=== PATIENT | male | born 1955 ===

== ENCOUNTER 2020-08-29 13:48 | Outpatient (CLI) | payer BC, SELFPAY ==
--- NOTE | 2020-08-29 13:52 | USCV_ITS ---
John Mathur Age: 65 Gender: M : 1955 Exam Date: 08/29/2020 14:02 Ordering Phys: Trish Meier Technologist: Yanni Clifford Exam Location: [facility] [place] Indication: av reg BP: 134 / 67 HR: 75 Rhythm: Sinus Technical Quality: Very technically difficult study MEASUREMENTS (Male / Female) Normal Values 2D ECHO LV Chamber Size 3.6 cm RV Chamber Size 2.5 cm LVOT Diameter 2.0 cm LV Ejection Fraction MOD 2C 57.0 % LV Ejection Fraction 2C AL 57.1 % LA Diameter 3.3 cm LA Width 2.9 cm LA Height 3.2 cm RA Width 2.6 cm RA Height 2.9 cm Aorta at Sinotubular Diameter 3.1 cm DOPPLER AV Peak Velocity 142.0 cm/s LVOT Peak Velocity 110.0 cm/s AV Area Cont Eq vti 3.0 cm squared AV Area Cont Eq pk 2.5 cm squared MV Area PHT 4.9 cm squared Mitral E to A Ratio 0.7 MV E' Velocity 37.5 cm/s Mitral E to MV E' Ratio 6.3 Mitral E to LV E' Lateral Ratio 5.2 Mitral E to LV E' Septal Ratio 8.1 TR Peak Velocity 161.0 cm/s TR Peak Gradient 10.4 mmHg TV Peak E Velocity 75.0 cm/s Right Atrial Pressure 3.0 mmHg Pulmonary Artery Systolic Pressu 13.4 mmHg PV Peak Velocity 66.0 cm/s RV Acceleration Time 0.2 s RV Ejection Time 0.4 s RV AcT/ET 0.4 FINDINGS Left Ventricle Normal left ventricular cavity size. Increased left ventricular wall thickness. Normal left ventricular systolic function. Left ventricular ejection fraction is estimated at 55%. There is mild to moderate hypokinesis of apical septal, apical lateral and apical inferior perez grade I diastolic dysfunction (abnormal relaxation filling pattern), normal to mildly elevated filling pressures. Right Ventricle Normal right ventricular size and systolic function. Right ventricular systolic pressure 16 mmHg. Right Atrium Normal right atrial size. Left Atrium Normal left atrial size. Mitral Valve Moderate mitral annular calcification. Thickened mitral valve. No mitral valve stenosis. Mild mitral valve regurgitation. Aortic Valve Aortic valve not well visualized. Probably tricuspid aortic valve. no aortic valve stenosis. Trace to mild aortic valve regurgitation. Tricuspid Valve Structurally normal tricuspid valve. Trace tricuspid valve regurgitation. Pulmonic Valve Pulmonic valve not well visualized. Trace pulmonary valve regurgitation. Pericardium No pericardial effusion. Aorta Aorta not well visualized. Possibly normal size aortic root and ascending aorta. CONCLUSIONS 1. This is a technically difficult study. 2. Normal left ventricular cavity size and systolic function. Increased left ventricular wall thickness. Left ventricular ejection fraction is estimated at 55%. There is mild to moderate hypokinesis of apical septal, apical lateral and apical inferior perez grade I diastolic dysfunction (abnormal relaxation filling pattern), normal to mildly elevated filling pressures. 3. Normal right ventricular size and systolic function. 4. Normal pulmonary artery pressure. 5. Mild mitral valve regurgitation. 6. Direct comparison to previous study dated 05/18/2019 is not possible given technical differences in study. Sabina Marshall MD (Electronically Signed) Final Date: 30 August 2020 17:22 S
== END 2020-08-29 13:49 | disposition home or self-care (01) ==
PROVIDERS: PCP Nurse Practitioner Family; Visit Provider Nurse Practitioner Family
DX: I35.1 Nonrheumatic aortic (valve) insufficiency (principal); I34.1 Nonrheumatic mitral (valve) prolapse
CPT/HCPCS: 93306

== ENCOUNTER → 2020-09-27 15:21 | Outpatient (BNVA) | payer BC, SELFPAY | PROVIDERS: PCP Nurse Practitioner Family; Referring Provider Nurse Practitioner Family; Visit Provider Urology | DX: N50.9 Disorder of male genital organs, unspecified (principal); R10.2 Pelvic and perineal pain | CPT/HCPCS: 81003 ==

== ENCOUNTER 2020-10-06 08:34 | Outpatient (CLI) | payer BC, SELFPAY ==
[2020-10-06 08:56] VITALS: BMI 32.3
--- NOTE | 2020-10-06 08:56 | ECG_ITS ---
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 Interpretive Statements NAME OF STUDY: LEXISCAN SESTAMIBI STRESS TEST INDICATION: Chest Pain PROCEDURE: At the baseline, the blood pressure was 140/86 mm Hg with a heart rate of 81 bpm and oxygen saturation of 95%. The electrocardiogram showed normal sinus rhythm, normal axis and non specific ST-T wave changes. ??? The Lexiscan was infused over a period of 20 seconds. A total of 0.4 milligrams of Lexiscan was infused. The stress phase was continued for a total of 5 minutes. Heart rate at the end of the stress phase was 93 bpm, oxygen saturation of 93% with a blood pressure 180/101 mm Hg. The EKG at the peak infusion revealed 2 mm horizontal to downsloping ST depression in II, III, aVF, V4-V6 and T wave inversion in III and aVF. The study was terminated due to protocol completion. ??? Sestamibi was injected 20 seconds after the Lexiscan infusion. ??? Blood pressure at the end of the recovery phase was 163/99 mm Hg, oxygen saturation of 94% with a heart rate of 90 beats per minute. ??? CONCLUSION: 1. Positive EKG changes with the LexiScan infusion. 2. No LexiScan induced chest pain or cardiac arrhythmia. 3. Normal blood pressure and heart rate response. 4. Sestamibi/sestamibi perfusion scan pending; see separate report. Electronically Signed On 10-07-2020 8:52:31 VENEER LAYER by Sabina Marshall M.D. [id number]
--- NOTE | 2020-10-06 08:57 | NMCV_ITS ---
NM rebeca perf SPECT r/s* [id number] John Mathur Age: 65 Gender: M : 1955 Exam Date: 10/06/2020 09:59 Ordering Phys: Sabina Marshall MD ([email or web address]) Technologist: EDIE Chavez Exam Location: [facility] Indications: CHEST PAIN STRESS TEST Please see separate stress test report in [facility] for full findings IMAGE PROTOCOL Rest/Stress 1 Lexiscan Day Radiopharmaceutical Dose (mCi) Administration Site Administered by Rest: Tc-99m 10.7 IV EDIE Bryant Sestamibi Stress:Tc-99m 32.6 IV EDIE Bryant Sestamibi Rest: 06-Oct-2020 60 Discovery 630 Stress: 06-Oct-2020 30 Discovery 630 0.4mg Lexiscan. Images obtained in supine and prone position. SPECT RESULTS Technical Quality: Excellent Raw Data Analysis: Normal Image Corrections: No attenuation or motion correction applied Summed Stress Score: 13 Summed Rest Score: 2 Summed Difference Score: 11 PERFUSION FINDINGS Medium size perfusion abnormality of mild severity of mid anteroseptal wall on rest images with decreased tracer uptake in basal to apical inferior, mid septal, apical septal and apical lateral perez on stress images. FUNCTIONAL RESULTS (calculated via Gated SPECT) Stress Image LV EF (%): 71 Stress EDV (mL):102 TID: 0.97 Stress ESV (mL):30 FUNCTIONAL FINDINGS: The left ventricle is normal in size. Transient Ischemia Dilatation of 0.97. The left ventricular ejection fraction is normal with a value of 71%. There is normal left ventricular wall thickening. Normal end-diastolic and end-systolic volumes. IMPRESSIONS 1. Medium size reversible perfusion abnormality of moderate severity of basal to apical inferior, mid septal, apical septal and apical lateral perez. 2. This may be suggestive of ischemia in right coronary artery and left anterior descending artery territory. 3. Overall left ventricular systolic function is abnormal with regional wall motion abnormalities. 4. The left ventricular ejection fraction is normal with a value of 71%. 5. No prior similar studies to compare. Sabina Marshall MD (Electronically Signed) Final Date: 09 October 2020 13:23 S
[2020-10-06] MEDS: hyDRALAzine 20 mg/mL INJ 1 mL 10 MG IVP (10:53)
[2020-10-06] MEDS: regadenoson 0.4 Mg/5 ml Syringe IVP (11:14)
[2020-10-06 11:31] VITALS: BP 163/99; PULSE 87
== END 2020-10-06 08:35 | disposition home or self-care (01) ==
PROVIDERS: PCP Nurse Practitioner Family; Visit Provider Internal Medicine Cardiovascular Disease
DX: I51.9 Heart disease, unspecified (principal); R07.9 Chest pain, unspecified
CPT/HCPCS: 78452; 93017; A9500; J0360; J2785

== ENCOUNTER → 2020-10-26 11:05 | Outpatient (BNVA) | payer BC, SELFPAY | PROVIDERS: PCP Nurse Practitioner Family; Visit Provider Internal Medicine Cardiovascular Disease | DX: R94.39 Abnormal result of other cardiovascular function study (principal); Z01.818 Encounter for other preprocedural examination; E78.5 Hyperlipidemia, unspecified; Z20.822 Contact with and (suspected) exposure to COVID-19 | CPT/HCPCS: 80048; 80061; 85025; 85610; 87635 ==

== ENCOUNTER 2020-10-31 08:59 | Day surgery (SDC) | payer BC, MEDICARE, SELFPAY ==
[2020-10-31] VITALS (7 sets, daily range): BP systolic 130–144; BP diastolic 81–97; PULSE 56–67; RESP 17–18; TEMP 36.4; O2SAT 92–95; BMI 32.9
--- NOTE | 2020-10-31 09:03 | XACV_ITS ---
Ht: 178 cm Wt: 101 kg BSA: 2.27 m2 Gender: Male : 1955 Exam Priority: Routine Procedure(s): Procedure Description: Diagnostic procedure Procedure Description: PCI procedure Procedure Description: Left Heart Catheterization Procedure Description: Drug Eluting Coronary Stent Procedure Description: PTCA Diagnostic Cath Status: Elective Diagnostic Findings * CX has 0% stenosis. * LM: Mild 30% stenosis, NORIS: 3 flow. * Proximal Left Anterior Descending Coronary Artery: Severe 95% stenosis, NORIS: 3 flow. * dLAD: Moderate 50% stenosis, NORIS: 3 flow. * Mid Right Coronary Artery: Severe 99% stenosis, NORIS: 3 flow. * dRCA to RPAV: Mild 40% stenosis, NORIS: 3 flow. * Coronary angiography shows right dominance. PCI Status: Elective PCI Indication: New Onset Angina <= 2 months Interventional Findings * Proximal Left Anterior Descending Coronary Artery: 95% stenosis treated with AB TREK 2.50X8 RX BALLOON, MDT R CATA 3.0X12 KENDRICK, and two MDT NC EUPHORA RX 3.19M80SI BALLOON. 0% residual stenosis, NORIS: 3 flow. * Mid Right Coronary Artery: 99% stenosis treated with two AB TREK 2.75X15 RX BALLOON, MDT R CATA 3.5X22 KENDRICK, and MDT NC EUPHORA RX 4.93P45JG BALLOON. 0% residual stenosis, NORIS: 3 flow. Conclusions 1. There is severe coronary artery disease with three vessel disease. 2. Proximal Left Anterior Descending Coronary Artery was treated with three Balloon and Drug Eluting Stent. 3. Mid Right Coronary Artery was treated with three Balloon and Drug Eluting Stent. 4. Indication for coronary angiogram: 5. Angina/abnormal stress test. Recommendations * 1-Return to inpatient for close monitoring and routine cath care 2-Risk factor modification for secondary prevention 3-Statin and aspirin 81 mg life--long, if tolerated 4-Patient was pre-loaded with 300 mg of Plavix, continue Plavix 75mg p.o. daily for at least one year. We will assess at the end of one year again to continue if further or not 5-Continue optimal medical management 6-Follow up with Dr. Godfrey in four weeks and your primary care in 10 days. Interventional RX Recommendation: PCI w/o planned CABG Diagnostic RX Recommendation: PCI w/o planned CABG Clinical Evaluation EBL: 5mL-10mL Procedural Details Procedure Consent Obtained. Admit Source: Out Patient. Pre-Procedure Time Out. Identified patient by full name and date of as verbalized by the patient/guarantor. Does the consent match the physician's order: Yes. Accurate & Complete Informed Consent: Yes. Inpatient/Outpatient History & Physical on Chart: Yes. If H&P is completed, is and addenduem needed: N/A; If yes, is the addendum complete: N/A. Visualize and Verify Site with Patient/Guarantor: N/A. Relevant Radiology Images available: N/A. Pre-op teaching completed and patient verbalized understanding. The risks, benefits, and alternatives of sedation and/or procedure were discussed by physician. The patient agrees to continue. Procedure started. Correct patient, site and procedure confirmed by cath team. PERRLA. Strong, equal hand geodetic advisor bilaterally. Lungs clear x 5 lobes. IV Site on Arrival: 20 gauge in the right anticubital. Pre Procedural Pulses: bilateral dorsalis pedis was 3+. Pre Procedural Pulses: bilateral posterior tibial was 2+. Pre Procedural Pulses: bilateral radial was 2+. Oxygen started at 2liters/min via nasal canula. bilateral groins was prepped with chloroprep then draped in the usual sterile fashion. right radial was prepped with chloroprep then draped in the usual sterile fashion. Physician notified. Baseline sample Acquired. HR: 62 BPM. Physician arrived. Physician scrubbed in. Immediate Pre-Procedure Time Out. Correct Patient: Yes; Correct Procedure: Yes; Correct Site: Yes; Correct Patient Position: Yes; Correct Supplies: Yes; Dried Flammable Prep: Yes; Blood Products Available: N/A;. Lidocaine 1% infiltrated to the right radial. Arterial access obtained. glide wire inserted. glidewire out. Multiple views taken of left coronary artery. Catheter redirected to the RCA. Multiple views taken of right coronary artery. Catheter out. 6 yakut XB 3.5 guide catheter was inserted over the wire. Matheny guidewire was advanced through the guide catheter to lesion in the prox LAD. Inflation number : 1 A AB TREK 2.50X8 RX BALLOON was prepped and advanced across the Prox LAD , then inflated to 14 STEPHIE for 0:07 seconds. Inflation number: 2 The AB TREK 2.50X8 RX BALLOON was reinflated across the Prox LAD, to 14 STEPHIE for 0:09 seconds. Inflation number: 3 The AB TREK 2.50X8 RX BALLOON was reinflated across the Prox LAD, to 20 STEPHIE for 0:27 seconds. Balloon out. Inflation Number : 4 A MDT R CATA 3.0X12 KENDRICK -Lot Number# [id number] exp date: 06-15-2022 was prepped and advanced across the Prox LAD. The stent was deployed at 20 STEPHIE for 0:35 seconds. Stent balloon out over wire. Inflation number : 5 A MDT NC EUPHORA RX 3.43V48IG BALLOON was prepped and advanced across the Prox LAD , then inflated to 0 STEPHIE for 0:00 seconds. Balloon and wire out. repositioning catheter. Inflation number : 6 A MDT NC EUPHORA RX 3.29U30IN BALLOON was prepped and advanced across the Prox LAD , then inflated to 14 STEPHIE for 0:20 seconds. Results checked. Balloon and wire out. Guide catheter out. 6 yakut AL 0.75 guide catheter was inserted over the wire. ACT drawn. Results 352 seconds. Therapeutic limits - pre-heparin administration 90-150 seconds and monitoring heparin during a vascular procedure >250 seconds. Inflation number: 1 The AB TREK 2.75X15 RX BALLOON was reinflated across the Mid RCA, to 14 STEPHIE for 0:28 seconds. Inflation number : 2 A AB TREK 2.75X15 RX BALLOON was prepped and advanced across the Mid RCA , then inflated to 14 STEPHIE for 0:20 seconds. Inflation number: 3 The AB TREK 2.75X15 RX BALLOON was reinflated across the Mid RCA, to 14 STEPHIE for 0:12 seconds. Balloon out. Inflation Number : 4 A MDT R CATA 3.5X22 KENDRICK -Lot Number# [id number] exp date: 09-19-2021 was prepped and advanced across the Mid RCA. The stent was deployed at 18 STEPHIE for 0:35 seconds. Results checked. Stent balloon out over wire. Inflation number : 5 A MDT NC EUPHORA RX 4.75M89GW BALLOON was prepped and advanced across the Mid RCA , then inflated to 12 STEPHIE for 0:33 seconds. Inflation number: 6 The MDT NC EUPHORA RX 4.92U94AT BALLOON was reinflated across the Mid RCA, to 12 STEPHIE for 0:21 seconds. Balloon out. Results checked. Guide catheter out. Wire out. TR band placed. Hemostasis obtained. Post Procedure: Pulses reassessed and unchanged. PERRLA. Strong, equal hand geodetic advisor bilaterally. No VTE prophylaxis required. Medication's Wasted: Lidocaine 1% = 16 mL. Medication's Wasted: Heparin = 1000 units. Medication's Wasted: Nitro = 49 mg. Total IV fluids: 150 mL. Contrast type used: Omnipaque 300 mgI/mL, 500 mL bottle. Contrast Material : Omnipaque 252 ml. A TR Band was successful obtaining hemostatsis at the Right Radial artery insertion site. ACT drawn. Results 256 seconds. Therapeutic limits - pre-heparin administration 90-150 seconds and monitoring heparin during a vascular procedure >250 seconds. [facility] Clinical Fraility Score: 3: Managing Well. Office Services Assistant Indications: New Onset Angina/ abnormal stress test. Chest Pain Symptom Assessment: Typical Angina Symptoms. Cardiovascular Instability: No,. PCI Indication:post drug illuting stent to Prox LAD and Mid RCA. Post-op diagnosis: drug illuting stent to Prox LAD and Mid RCA. Complications: none. Estimated blood loss: 5mL-10mL. Procedure completed. Patient transferred by wheelchair to 1st floor. Access Site Site: Right Radial artery Sheath Size: 6 Fr Hemostasis Method: TR Band Hemostasis Success: Successful Procedure Medications Start: 10:28 AM Stop: 10:28 AM Medication: Versed Amount: 1 mg Route: I.V. Start: 10:37 AM Stop: 10:37 AM Medication: Versed Amount: 1 mg Route: I.V. Start: 10:47 AM Stop: 10:47 AM Medication: Heparin Amount: 5000 units Route: I.V. Start: 10:49 AM Stop: 10:49 AM Medication: Versed Amount: 1 mg Route: I.V. Start: 10:55 AM Stop: 10:55 AM Medication: Heparin Amount: 5000 units Route: I.V. Start: 11:00 AM Stop: 11:00 AM Medication: Versed Amount: 1 mg Route: I.V. Start: 11:12 AM Stop: 11:12 AM Medication: Versed Amount: 1 mg Route: I.V. Start: 11:24 AM Stop: 11:24 AM Medication: Versed Amount: 1 mg Route: I.V. Start: 11:41 AM Stop: 11:41 AM Medication: Versed Amount: 1 mg Route: I.V. Start: 11:53 AM Stop: 11:53 AM Medication: Plavix Amount: 300 mg Route: P.O. I, the attending physician, have reviewed and verified all procedure medications. Yes, all medications given per verbal order History/Risk Factors Dyslipidemia: Yes Tobacco Use: Never Report Signatures Finalized by Elizabeth Godfrey MD on 11/10/2020 08:52 PM
[2020-10-31] MEDS: diphenhydrAMINE 50 mg Capsule PO (09:40)
--- NOTE | 2020-10-31 12:15 | PC.NURSE ---
ARRIVAL PT ARRIVED FROM TNT POWDER WORKER AO X4. ORIENTATED TO ROOM, MEAL TRAY SET UP. TR BAND ON RIGHT WRIST NO HEMATOMA AT TIME OF ADMISSION. PATIENT HAS NO COMPLAINTS AT THIS TIME. FAMILY AT BEDSIDE. NURSE TO CONTINUE TO MONITOR.
--- NOTE | 2020-10-31 12:15 | P.HPUD_ITS ---
Surgery/Procedure H&P Update DATE OF PROCEDURE: October 31, 2020 DATE H&P PERFORMED: 10/23/20 H&P UPDATE INFORMATION: I have reviewed H&P completed within last 30 days, I have examined patient prior to procedure and No changes to prior documentation PREOP DIAGNOSIS: Abnormal stress test, coronary artery disease, angina. PLANNED PROCEDURE: Operation Date: 10/31/20 10:00 Proposed Procedures p left Cardiac Catheterization 95703 R94.39(Left) - Elizabeth Godfrey MD PHYSICAL EXAM: alert, oriented x 3, clear to auscultation bilaterally and regu lar rate & rhythm AIRWAY EVAL/ANESTHESIA PLAN: ASA II, Risks, benefits & alternatives of sedation and/or procedure discussed and Patient agrees to continue as planned
[2020-10-31] MEDS: aspirin 81 mg EC Tablet PO (13:11)
[2020-10-31] MEDS: atorvastatin 40 mg Tablet PO (13:11)
--- NOTE | 2020-10-31 18:24 | PC.NURSE ---
TR BAND TR BAND REMOVED PER PROTOCOL @ 1800. NO DRAINAGE OR HEMATOMA PRESENT. PT STATES NO COMPLAINTS AT THIS TIME. NURSE WILL CONTINUE TO MONITOR.
--- NOTE | 2020-11-01 04:58 | PC.NURSE ---
NURSE NOTE: SHIFT SUMMARY: PT ALERT AND ORIENTED X4, MOVES ALL EXTREMITIES AND FOLLOWS ALL COMMANDS. RESTED WITH EYES CLOSED MOST OF SHIFT. DENIES PAIN. CURRENTLY RESTING WITH EYES CLOSED, RESP EVEN AND NON LABORED, ALL VS AND ASSESSMENTS CHARTED. NO DISTRESS NOTED AT THIS TIME.
[2020-11-01 05:10] LABS: Basophils % 0.4 %; Eosinophils # 0.3 10^3/uL (0.0-0.8); Eosinophils % 3.2 %; Hematocrit 47.1 % (42.0-52.0); Hemoglobin 15.4 g/dL (11.7-16.6); Lymphocytes % 24.8 %; Mean Corpuscular HGB Conc 32.7 g/dL (30.0-36.0); Mean Corpuscular Hemoglobin 31.4 pg (28.0-34.0); Mean Corpuscular Volume 95.9 fL (80-94); Mean Platelet Volume 10.7 fL (7.4-10.4); Monocytes # 0.7 10^3/uL (0.2-0.9); Monocytes % 8.4 %; Neutrophils % 62.3 %; Nucleated Red Blood Cells % 0 %; Platelet Count 191 10^3/cmm (130-400); Red Blood Count 4.91 10^6/uL (4.1-5.3); Red Cell Distribution Width 12.6 % (12.1-15.1); White Blood Count 8.2 10^3/uL (4.0-10.0)
[2020-11-01 05:26] LABS: Blood Urea Nitrogen 13 mg/dL (8-23); Calcium 9.3 mg/dL (8.5-10.5); Carbon Dioxide 28 mmol/L (22-29); Chloride 102 mmol/L (98-107); Glomerular Filtration Rate 112.8 mL/min (90-130); Glucose 92 mg/dL (65-115); Osmolality Calculated 288 mOsm/kg (285-295); Sodium 139 mmol/L (136-145)
[2020-11-01 05:43] LABS: Anion Gap 13.4 (5-19); Potassium 4.4 mmol/L (3.5-5.1)
[2020-11-01 06:00] VITALS: PULSE 60
--- NOTE | 2020-11-01 07:17 | P.SS_ITS ---
Short Stay Summary Providers Date of Admit/Discharge: 11/01/20 Attending Provider: Elizabeth Godfrey MD Primary Care Provider: Trish Meier Chief Complaint: [facility] HPI History of Present Illness John Mathur is a 65 year old male past medical history significant for hypertension hyperlipidemia for worsening of chest pain or shortness of breath underwent stress test which turned out to be abnormal. It is the reason patient was brought in yesterday for left heart cath. She was noted to have highly calcified proximal LAD and mid RCA lesion both were treated with drug-eluting stents 1 in LAD 1 and RCA. Excellent angiographic result with NORIS-3 flow was noted. Procedure remained uncomplicated. Patient will continue dual antiplatelet therapy. No event overnight noted. He will be discharged today with advised to follow-up with cardiology in 7 days. Home Meds/Allergies Home Medications and Allergies Home Medications Medication Instructions Recorded Confirmed Type allopurinol 300 mg tablet 300 mg PO DAILY 09/27/20 10/31/20 History atorvastatin 40 mg tablet 40 mg PO DAILY 09/27/20 10/31/20 History cetirizine 10 mg tablet 5 mg PO DAILY PRN 09/27/20 10/31/20 History cholecalciferol (vitamin D3) 1,250 PO 09/27/20 09/27/20 History mcg (50,000 unit) capsule ergocalciferol (vitamin D2) 1,250 1,250 mcg PO DAILY 09/27/20 10/31/20 History mcg (50,000 unit) capsule meclizine 25 mg tablet 25 mg PO DAILY 09/27/20 10/31/20 History methocarbamol 750 mg tablet 750 mg PO Q8H 09/27/20 10/31/20 History omeprazole 20 mg capsule,delayed 20 mg PO DAILY 09/27/20 10/31/20 History release aspirin 81 mg tablet,delayed 81 mg PO DAILY 10/23/20 10/31/20 History release Allergies Allergy/AdvReac Type Severity Reaction Status Date / Time No Known Allergies Allergy Verified 10/23/20 13:27 PFSH Acute PFSH: Medical History Aortic valve regurgitation Benign paroxysmal positional vertigo Hyperlipidemia Pelvic pain in male Primary gout Vitamin D deficiency Surgical History History of hip surgery Hx of hernia repair Family History Mother Stroke Brother Diabetes Father CAD (coronary artery disease) Other Hyperlipidemia Hypertension Social History Smoking and tobacco status: never smoked Alcohol intake: current Alcohol intake frequency: holidays/special occasions only Marital status: Current occupational status: retired Vitals/I&O/Wt Last Vital Signs Temp 97.6 F 10/31/20 16:24 Pulse 60 11/01/20 06:00 Resp 17 10/31/20 16:24 BP 144/97 10/31/20 16:24 Pulse Ox 94 10/31/20 22:59 10/31/20 11/01/20 11/01/20 22:59 06:59 14:59 Intake Total 360 / 360 240 / 600 Output Total 300 / 300 400 / 700 Balance 60 / 60 -160 / -100 Weight last 48 hrs Weight 223 lb Physical Exam Narrative: EXAM NARRATIVE: GENERAL: Patient is alert, awake and oriented x3. NECK: No jugular vein distension. HEENT: No cyanosis. No icterus. No pallor. HEART: Regular S1 and S2. No murmur, rub or gallop. LUNGS: Clear to auscultate bilaterally. ABDOMEN: Soft, nontender and nondistended. Positive bowel sounds. No guarding, rebound or tenderness. CENTRAL NERVOUS SYSTEM: Grossly nonfocal. EXTREMITIES: Lower extremities without edema bilaterally. SSS Data Data Completed and Pending: Pending at discharge Category Date Time Status JUNIOR MARKETING ASSOCIATE request for service Routin e Exams 10/31/20 09:03 Taken Discharge Plan Discharge Patient Disposition: Home Condition: Stable Prescriptions: Continued aspirin [Adult Aspirin Regimen] 81 mg tablet,delayed release (DR/EC) 81 mg PO DAILY RF: 0 allopurinol 300 mg tablet 300 mg PO DAILY RF: 0 atorvastatin 40 mg tablet 40 mg PO DAILY RF: 0 cholecalciferol (vitamin D3) 1,250 mcg (50,000 unit) capsule PO RF: 0 ergocalciferol (vitamin D2) 1,250 mcg (50,000 unit) capsule 1,250 mcg PO DAILY RF: 0 meclizine 25 mg tablet 25 mg PO DAILY RF: 0 methocarbamol 750 mg tablet 750 mg PO Q8H RF: 0 omeprazole 20 mg capsule,delayed release(DR/EC) 20 mg PO DAILY RF: 0 cetirizine [Zyrtec] 10 mg tablet 5 mg PO DAILY PRN (Reason: Allergy Symptoms) RF: 0 nitroglycerin 0.4 mg tablet, sublingual 0.4 mg sublingual Q5M PRN (Reason: chest pain) Qty: 25 RF: 3 metoprolol tartrate 25 mg tablet 25 mg PO DAILY Qty: 60 RF: 5 isosorbide mononitrate 30 mg tablet extended release 24 hr 30 mg PO DAILY Qty: 30 RF: 5 clopidogrel 75 mg tablet 75 mg PO DAILY Qty: 7 RF: 0 Discharge Diet: Cardiac and Low Cholesterol Discharge Activity: Increase activity as tolerated Patient Instructions: Left Heart Catheterization (DC), Coronary Angioplasty (DC) Activity Restrictions/Additional Instructions: Follow-up with cardiology nurse practitioner Ms. Smith in 7 days, follow-up with Dr. Marshall in 6 to 8 weeks. Please continue clopidogrel and aspirin for at least 1 year after that we will decide whether to continue or not Attestations Medical Necessity Statement*: Post PCI patient was observed overnight. He will be discharged home today Time Spent in Patient Care*: less than 30 min Specific Discharge Activities: Specific discharge activities: educating patient Quality Metrics Clinical Quality Measures: During this hospital stay, did patient experience: None Coding Level of Care Code Acute Papier Mache' Molder for Kai Lyn
[2020-11-01 07:30] VITALS: BP 145/86; PULSE 67; RESP 20; TEMP 36.7; O2SAT 94
[2020-11-01] MEDS: aspirin 81 mg EC Tablet PO (09:17)
[2020-11-01] MEDS: clopidogrel 75 mg Tablet PO (09:18)
[2020-11-01] MEDS: metoprolol tartrate 25 mg Tablet PO (09:24)
--- NOTE | 2020-11-01 09:30 | PC.NURSE ---
pt refused allopurinol and atorvastatin.states taked those at night and will take tonight.refused protonix..states he will take omeprazole at noon at home.negar has been dc'd
[2020-11-01 09:35] VITALS: BP 145/86; PULSE 67; RESP 20; TEMP 36.7; O2SAT 94
--- NOTE | 2020-11-01 10:10 | PC.NURSE ---
discharge instructions given and explined.pt verb understanding of instructions.discharged at this time.pt amb to exit.spouse to drive pt home
== END 2020-11-01 10:12 | disposition home or self-care (01) ==
LOC: CCL 09:02 → CSU 11-01 07:16
PROVIDERS: PCP Nurse Practitioner Family; Visit Provider Internal Medicine Cardiovascular Disease
DX: I25.10 Atherosclerotic heart disease of native coronary artery without angina pectoris (principal); R94.39 Abnormal result of other cardiovascular function study; E78.5 Hyperlipidemia, unspecified; E55.9 Vitamin D deficiency, unspecified; N40.0 Benign prostatic hyperplasia without lower urinary tract symptoms; I35.1 Nonrheumatic aortic (valve) insufficiency
CPT/HCPCS: 36415; 80048; 85025; 85347; 93454; C1725; C1769; C1874; C1887; C1894; C9600; C9601; J1644; J2250; J3010; J3490; J7030; Q0163; Q9967

== ENCOUNTER 2020-11-04 19:16 | Inpatient (IN) | payer BC, MEDICARE, SELFPAY ==
[2020-11-04] VITALS (37 sets, daily range): BP systolic 99–162; BP diastolic 42–99; PULSE 72–108; RESP 14–33; TEMP 36.3–37.2; O2SAT 89–98; BMI 30.8
--- NOTE | 2020-11-04 19:54 | ECG_ITS ---
[facility] Test Date: 2020-11-04 Pat Name: John Mathur Department: Room: Gender: Male Roll Hand: : 1955 Requested By: Donnell Lagos Order Number: [id number] Reading MD: KATERIN WOODS Measurements Intervals [place] Rate: 99 P: -52 IA: 244 QRS: 52 QRSD: 134 T: 55 QT: 352 QTc: 453 Interpretive Statements SINUS RHYTHM WITH FIRST DEGREE AV BLOCK INTRAVENTRICULAR CONDUCTION DELAY [130+ ms QRS DURATION] No previous ECG available for comparison Electronically Signed On 11-05-2020 17:43:53 COMMODITY TRADER by KATERIN WOODS [id number]
--- NOTE | 2020-11-04 19:54 | XRR_ITS ---
PROCEDURE INFORMATION: Exam: XR Chest Exam date and time: 11/04/2020 8:30 PM Age: 65 years old Clinical indication: Other: Dizzy; Prior surgery; Surgery date: 3-7 days post-operative; Surgery type: Stents TECHNIQUE: Imaging protocol: XR of the chest Views: 1 view. COMPARISON: CR Chest 1 view [id number] 10/01/2020 10:26 PM FINDINGS: Lungs: Low lung volumes. No focal consolidation. Pleural spaces: Unremarkable. No pleural effusion. No pneumothorax. Heart/Mediastinum: Stable cardiomediastinal silhouette. Bones/joints: Degenerative changes of the spine seen. XR/XR chest 1V portable [id number] IMPRESSION: No evidence of active cardiopulmonary disease.
[2020-11-04] MEDS: sodium chloride 0.9% 500 ML 999 ML IV (20:10)
[2020-11-04 20:20] LABS: Basophils # 0.1 10^3/uL (0.0-0.1); Basophils % 0.6 %; Eosinophils # 0.3 10^3/uL (0.0-0.8); Eosinophils % 3.3 %; Hematocrit 45.8 % (42.0-52.0); Hemoglobin 15.7 g/dL (11.7-16.6); Lymphocytes # 2.4 10^3/uL (0.8-4.8); Lymphocytes % 26.3 %; Mean Corpuscular HGB Conc 34.3 g/dL (30.0-36.0); Mean Corpuscular Hemoglobin 32.5 pg (28.0-34.0); Mean Corpuscular Volume 94.8 fL (80-94); Monocytes # 0.8 10^3/uL (0.2-0.9); Monocytes % 8.6 %; Neutrophils # 5.49 10^3/uL (1.8-7.7); Neutrophils % 60.6 %; Nucleated Red Blood Cells % 0 %; Platelet Count 208 10^3/cmm (130-400); Red Blood Count 4.83 10^6/uL (4.1-5.3); Red Cell Distribution Width 12.5 % (12.1-15.1); White Blood Count 9.1 10^3/uL (4.0-10.0)
[2020-11-04 20:37] LABS: Troponin(5th) Baseline 22 ng/L (0-15)
[2020-11-04 20:40] LABS: INR 1.17 (0.8-1.2)
[2020-11-04] MEDS: DOPamine drip 400 MG/250 ML PREMIX 18.3 MG IV (20:40)
[2020-11-04 20:41] LABS: Alanine Aminotransferase 53 U/L (0-41); Albumin Level 4.4 g/dL (3.5-5.2); Alkaline Phosphatase 62 IU/L (40-130); Blood Urea Nitrogen 12 mg/dL (8-23); Calcium 9.3 mg/dL (8.5-10.5); Carbon Dioxide 24 mmol/L (22-29); Chloride 104 mmol/L (98-107); Creatine Phosphokinase 127 U/L (39-308); Globulin 2.7 g/dL (1.3-4.6); Glomerular Filtration Rate 74.8 mL/min (90-130); Glucose 123 mg/dL (65-115); NT Pro B Type Natriuretic Pept 148 pg/mL (0-125); Osmolality Calculated 289 mOsm/kg (285-295); Sodium 139 mmol/L (136-145); Total Bilirubin 0.4 mg/dL (0.15-1.2); Total Protein 7.1 g/dL (6.6-8.7)
[2020-11-04 20:44] LABS: Anion Gap 15.1 (5-19); Aspartate Amino Transferase 39 U/L (0-40); Potassium 4.1 mmol/L (3.5-5.1)
--- NOTE | 2020-11-04 21:43 | ED_ITS ---
HPI - Arrhythmia/Palpitations General: Chief Complaint: Arrhythmia/Palpitations Stated Complaint: DIZZY Time Seen by Provider: 11/04/20 19:48 History of Present Illness: HPI narrative: 65-year-old gentleman who had stents placed in his RCA and LAD on Friday he notes a couple of days ago he is started having dizzy spells. He has a feeling of impending doom, and dizziness, such that he might pass out no chest discomfort associated with these. No real shortness of breath. He does note that they make him tired. He has been on metoprolol, and did not take his metoprolol this morning, and did not have any episodes until tonight, about 45 minutes after taking his metoprolol dose Associated symptoms: Deny anxiety, nausea or vomiting Review of Systems Const: Denies: fever(s) Eyes: Denies: change in vision ENMT: Denies: odynophagia, swelling of lips/tongue or sinus pain Card: Reports: irregular heart rhythm; Denies: chest pain, palpitations or edema Resp: Denies: dyspnea, productive cough, non-productive cough or wheezing GI: Denies: abdominal pain, nausea or vomiting : Denies: difficulty urinating or hematuria Musc: Denies: neck pain or back pain Skin/Breast: Denies: rash or erythema Neuro: Reports: dizziness; Denies: headache(s) or vertigo Psych: Denies: anxiety PFSH ED PFSH: Medical History Aortic valve regurgitation Benign paroxysmal positional vertigo Hyperlipidemia Pelvic pain in male Primary gout Vitamin D deficiency Surgical History History of hip surgery Hx of hernia repair Family History Mother Stroke Brother Diabetes Father CAD (coronary artery disease) Other Hyperlipidemia Hypertension Social History Smoking and tobacco status: never smoked Alcohol intake: current Alcohol intake frequency: holidays/special occasions only Marital status: Current occupational status: retired Physical Exam Const: GENERAL APPEARANCE: well developed ORIENTATION/CONSCIOUSNESS: Yes oriented to person, Yes oriented to place and Yes oriented to time HENMT: COMMON NORMALS: normocephalic, external ears normal and Normal external nose present HEAD & SCALP: normocephalic FACE & SINUS: normal facial exam NOSE: Normal external nose present and No nasal discharge present EXTERNAL EAR: Yes external ears normal TEETH & GINGIVA: no abnormal tooth and associated gingiva THROAT: posterior oropharynx normal; no peritonsillar mass Eye: COMMON NORMALS: Equal, round and reactive pupils present, EOMs intact bilaterally and conjunctivae normal EYELID: eyelids normal CONJUNCTIVA: Yes conjunctivae normal PUPIL: Yes Equal, round and reactive pupils present Neck/C-Spine: GENERAL: No tracheal deviation Chest: COMMONS NORMALS: normal inspection of the chest CHEST: No tenderness Resp: COMMON NORMALS: clear to auscultation bilaterally EFFORT & INSPECTION: No tachypneic, No respiratory distress, No retractions, No uses accessory muscles and No tracheal deviation AUSCULTATION: clear to auscultation bilaterally, no rhonchi, no wheezes and lung sounds not diminished Cardio: COMMON NORMALS: regular rate RATE: regular rate RHYTHM: abnormal rhythm irregularly irregular HEART SOUNDS: no murmurs PERIPHERAL PULSES: radial pulses present GI: INSPECTION: No abdominal distension AUSCULTATION: No Hyperactive bowel sounds present and No Hypoactive bowel sounds present PALPATION: No Guarding due to palpation present (GI) and No Rigid due to palpation PERCUSSION: no dullness to percussion and no tympanic to percussion Neuro: SENSORIUM/ORIENTATION: Yes oriented to person, Yes oriented to place and Yes oriented to time Psych: COMMON NORMALS: mental status grossly normal Skin: COMMON NORMALS: no rashes or lesions noted GENERAL SKIN EXAM: no rashes or lesions noted Course Consultations: Consultation #1: Epifanio cardiology Consultation #2: Oscar hospitalist Vital Signs: Vital signs: Vital Signs Temperature 97.3 F L 11/04/20 19:57 Pulse Rate 93 11/04/20 22:54 Respiratory Rate 16 11/04/20 22:54 Blood Pressure 99/42 11/04/20 22:54 Pulse Oximetry 94 11/04/20 22:54 MDM - Arrhythmia/Palpitations MDM Narrative: Medical decision making narrative: 65-year-old male with an irregular bradycardia. His pauses are significantly prolonged. They are symptomatic. EKG shows atrial fibrillation without acute ST changes. On 1 EKG, a long pause is captured. The patient was symptomatic with this. Atropine was brought to the bedside. Pacemaker pads were placed. These did not have to be used. I consulted cardiology, who recommended a dopamine drip at 10. This seemed to work. There have not been any long pauses since this was started. This may also correspond to the peak of the metoprolol being past. He will be admitted to the ICU for continued monitoring and treatment. Hospitalist has seen the patient in the ER. Cardiology has been formally consulted and most likely see in the morning unless there are problems that arise overnight. Lab Data: Labs: Lab Results 11/04/20 11/04/20 11/04/20 Range/Units 20:02 20:02 20:02 WBC 9.1 (4.0-10.0) 10^3/ uL RBC 4.83 (4.1-5.3) 10^6/u L Hgb 15.7 (11.7-16.6) g/dL Hct 45.8 (42.0-52.0) % MCV 94.8 H (80-94) fL MCH 32.5 (28.0-34.0) pg MCHC 34.3 (30.0-36.0) g/dL RDW 12.5 (12.1-15.1) % Plt Count 208 (130-400) 10^3/c mm MPV 11.0 H (7.4-10.4) fL Neut % (Auto) 60.6 % Lymph % (Auto) 26.3 % [place] % (Auto) 8.6 % Eos % (Auto) 3.3 % Baso % (Auto) 0.6 % Neut # (Auto) 5.49 (1.8-7.7) 10^3/u L Lymph # (Auto) 2.4 (0.8-4.8) 10^3/u L [place] # (Auto) 0.8 (0.2-0.9) 10^3/u L Eos # (Auto) 0.3 (0.0-0.8) 10^3/u L Baso # (Auto) 0.1 (0.0-0.1) 10^3/u L Nucleated RBC % (a uto) 0 % Nucleated RBCs # 0.0 /100WBC PT 15.20 H (12.1-14.9) SECO NDS INR 1.17 (0.8-1.2) APTT 35.0 (23.9-36.7) SECO NDS Sodium 139 (136-145) mmol/L Potassium 4.1 (3.5-5.1) mmol/L Chloride 104 (98-107) mmol/L Carbon Dioxide 24 (22-29) mmol/L Anion Gap 15.1 (5-19) BUN 12 (8-23) mg/dL Creatinine 1.0 (0.7-1.2) mg/dL GFR Calculation 74.8 L (90-130) mL/min Glucose 123 H (65-115) mg/dL Calculated Osmolal ity 289 (285-295) mOsm/k g Calcium 9.3 (8.5-10.5) mg/dL Total Bilirubin 0.4 (0.15-1.2) mg/dL AST 39 (0-40) U/L ALT 53 H (0-41) U/L Alkaline Phosphata se 62 (40-130) IU/L Creatine Kinase 127 (39-308) U/L Troponin T Baselin e (0-15) ng/L NT-Pro-B Natriuret Pep 148 H (0-125) pg/mL Total Protein 7.1 (6.6-8.7) g/dL Albumin 4.4 (3.5-5.2) g/dL Globulin 2.7 (1.3-4.6) g/dL /02/19 Range/Units 20:02 WBC (4.0-10.0) 10^3/ uL RBC (4.1-5.3) 10^6/u L Hgb (11.7-16.6) g/dL Hct (42.0-52.0) % MCV (80-94) fL MCH (28.0-34.0) pg MCHC (30.0-36.0) g/dL RDW (12.1-15.1) % Plt Count (130-400) 10^3/c mm MPV (7.4-10.4) fL Neut % (Auto) % Lymph % (Auto) % [place] % (Auto) % Eos % (Auto) % Baso % (Auto) % Neut # (Auto) (1.8-7.7) 10^3/u L Lymph # (Auto) (0.8-4.8) 10^3/u L [place] # (Auto) (0.2-0.9) 10^3/u L Eos # (Auto) (0.0-0.8) 10^3/u L Baso # (Auto) (0.0-0.1) 10^3/u L Nucleated RBC % (a uto) % Nucleated RBCs # /100WBC PT (12.1-14.9) SECO NDS INR (0.8-1.2) APTT (23.9-36.7) SECO NDS Sodium (136-145) mmol/L Potassium (3.5-5.1) mmol/L Chloride (98-107) mmol/L Carbon Dioxide (22-29) mmol/L Anion Gap (5-19) BUN (8-23) mg/dL Creatinine (0.7-1.2) mg/dL GFR Calculation (90-130) mL/min Glucose (65-115) mg/dL Calculated Osmolal ity (285-295) mOsm/k g Calcium (8.5-10.5) mg/dL Total Bilirubin (0.15-1.2) mg/dL AST (0-40) U/L ALT (0-41) U/L Alkaline Phosphata se (40-130) IU/L Creatine Kinase (39-308) U/L Troponin T Baselin e 22 H (0-15) ng/L NT-Pro-B Natriuret Pep (0-125) pg/mL Total Protein (6.6-8.7) g/dL Albumin (3.5-5.2) g/dL Globulin (1.3-4.6) g/dL Critical Care Time Critical Care Time: Critical Care Time: Yes Total Critical Care Time: 35 Attestation: This case had a high probability of a clinically significant, sudden, or life threatening deterioration of this patient's condition which required my full and direct attention, intervention and personal management. Discharge Plan Discharge Patient Disposition: Admitted As Inpatient Admit Provider: Cade Moore Clinical Impression: Bradycardia Atrial fibrillation Qualifiers: Atrial fibrillation type: paroxysmal Qualified Code(s): I48.0 - Paroxysmal atrial fibrillation Condition: Stable Coding Level of Care Code ED Publications Manager for g Fwd Exam Comprehensive
--- NOTE | 2020-11-04 21:54 | ECG_ITS ---
[facility] Test Date: 2020-11-04 Pat Name: John Mathur Department: Room: ICU10 Gender: Male Spiritual Minister: : 1955 Requested By: Donnell Lagos Order Number: [id number] Reading MD: KATERIN WOODS Measurements Intervals [place] Rate: 51 P: DC: QRS: 23 QRSD: 99 T: 51 QT: 384 QTc: 355 Interpretive Statements SINUS RYTHM FOLLOWED BY SINUS PAUSE NONSPECIFIC ST & T-WAVE ABNORMALITY ABNORMAL RHYTHM ECG No previous ECG available for comparison Electronically Signed On 11-05-2020 17:46:28 AUTOMATION QTP TESTER by KATERIN WOODS [id number] f
[2020-11-04 22:05] LABS: Troponin 5 2HR 21.89 ng/L (0-15)
[2020-11-04 22:09] LABS: Troponin 5 2HR Delta -0.11 ABS# (0-10)
--- NOTE | 2020-11-04 22:18 | P.HP_ITS ---
Providers/Chief Complaint Admitting Physician: Cade Moore Primary Care Provider: Trish Meier-Candido Chief Complaint: DIZZY History of Present Illness John Mathur is a 65 year old male with a diagnosis of coronary artery disease, status post cardiac catheterization 4 days ago presented to the emergency department with a complaint of dizziness. groundwater monitoring technician in the ED demonst rated significant pauses in his heart rhythm and atrial fibrillation. His heart rate was down to the 40s in the ED. Patient correlated his symptoms to metoprolol administration. Patient states he has been experiencing slow heartbeat over the last couple of weeks and his physicians had been titrating his metoprolol dose down even before he underwent the cardiac catheterization. Cast Associate Dr. Godfrey was informed who recommended dopamine drip. His heart rate improved to the low 80s and 90s on the dopamine drip and this was associated with improvement in the dizziness. Check x-ray is unremarkable. Troponin unremarkable. Patient denies any chest pain or palpitation. He is admitted for further management. Review of Systems Narrative: Except as documented, all other systems reviewed and negative. Medications/Allergies Home Medications Medication Instructions Recorded Confirmed Last Taken Type allopurinol 300 mg tablet 300 mg PO DAILY 09/27/20 10/31/20 10/30/20 22:30 History cetirizine 10 mg tablet 5 mg PO DAILY PRN 09/27/20 10/31/20 10/30/20 22:30 History cholecalciferol (vitamin D3) 1,250 PO 09/27/20 09/27/20 10/30/20 22:30 History mcg (50,000 unit) capsule ergocalciferol (vitamin D2) 1,250 1,250 mcg PO DAILY 09/27/20 10/31/20 10/30/20 22:30 History mcg (50,000 unit) capsule omeprazole 20 mg capsule,delayed 20 mg PO DAILY 09/27/20 10/31/20 10/30/20 22:30 History release nitroglycerin 0.4 mg sublingual 0.4 mg SUBLINGUAL Q5M PRN #25 tab 09/29/20 10/31/20 Unknown Rx tablet metoprolol tartrate 25 mg tablet 25 mg PO DAILY #60 tab 10/18/20 10/31/20 10/30/20 22:30 Rx Adult Aspirin Regimen 81 mg PO DAILY #90 tab 11/01/20 10/31/20 10/31/20 07:15 Rx atorvastatin 40 mg PO DAILY #90 tab 11/01/20 10/31/20 10/30/20 22:30 Rx clopidogrel 75 mg PO DAILY #90 tab 11/01/20 10/31/20 10/31/20 07:15 Rx Allergies Allergy/AdvReac Type Severity Reaction Status Date / Time No Known Allergies Allergy Verified 10/23/20 13:27 PFSH Acute PFSH: Medical History Aortic valve regurgitation Benign paroxysmal positional vertigo Hyperlipidemia Pelvic pain in male Primary gout Vitamin D deficiency Surgical History History of hip surgery Hx of hernia repair Family History Mother Stroke Brother Diabetes Father CAD (coronary artery disease) Other Hyperlipidemia Hypertension Social History Smoking and tobacco status: never smoked Alcohol intake: current Alcohol intake frequency: holidays/special occasions only Marital status: Current occupational status: retired Vitals/I&O/Wt Last Vital Signs Temp 97.3 F L 11/04/20 19:57 Pulse 85 11/04/20 22:10 Resp 23 H 11/04/20 22:10 BP 104/67 11/04/20 22:10 Pulse Ox 94 11/04/20 22:10 11/04/20 11/04/20 11/04/20 06:59 14:59 22:59 Intake Total 0.915 / 0.915 Balance 0.915 / 0.915 Weight last 48 hrs Weight 97.522 kg Physical Exam Const: COMMON NORMALS: no acute distress, patient oriented x3, alert and well nourished HENMT: COMMON NORMALS: normocephalic, atraumatic and moist oral mucous membranes Eye: COMMON NORMALS: Equal, round and reactive pupils present, EOMs intact bilaterally, conjunctivae normal and no scleral icterus Neck/C-Spine: COMMON NORMALS: supple, no JVD and Thyroid normal Lymph: LYMPHATIC: no lymphadenopathy noted Chest: CHEST: Yes Symmetrical chest wall rise Resp: COMMON NORMALS: normal respiratory effort, No retractions, No use of accessory muscles and clear to auscultation bilaterally Cardio: COMMON NORMALS: no JVD, S1 normal heart sound present and S2 normal heart sound present RHYTHM: abnormal rhythm irregularly irregular GI: COMMON NORMALS: Normal to inspection, nondistended, normoactive bowel sounds present, Soft to palpation, non-tender, No hepatosplenomegaly present and no bruits : COMMON NORMALS: Yes no CVA tenderness Back/Pelvis: COMMON NORMALS: no thoracic nor lumbar tenderness and thoraco- lumbar ROM normal Extremity: COMMON NORMALS: full ROM, no clubbing, cyanosis or edema and no pedal edema Neuro: COMMON NORMALS: patient oriented x3, CN's II-XII intact bilaterally and no focal motor deficits Psych: COMMON NORMALS: mental status grossly normal, Normal thought process present, cooperative, normal affect and speech normal Skin: COMMON NORMALS: no rashes or lesions noted, no jaundice and no petechiae Data : 11/05/20 02:00 11/05/20 02:00 CXR: My impression: No acute cardiopulmonary activity. A&P Assessment and plan (1) Bradycardia: Symptomatic Status: Acute (2) Atrial fibrillation: Status: Acute (3) Coronary artery disease: Status: Acute (4) H/O heart artery stent: Status: Acute Additional A&P Information Admit patient to CSU. Continue dopamine drip as recommended by cardiology. Consult cardiology-Dr. Godfrey requested. Status post recent cardiac stent. Continue CAD medication-aspirin, Plavix and statin. Hold metoprolol. Attestations Medical Necessity Statement*: Patient presenting with symptomatic bradycardia and atrial fibrillation. He need to be hospitalized for further evaluation and management. He is expected to spend more than 2 midnights. Coding Level of Care Code Acute Supervisory Investigative Specialist for [facility] Fwd Exam Comprehensive Diagnoses Bradycardia R00.1 Atrial fibrillation I48.91 Coronary artery disease I25.10 H/O heart artery stent Z95.5
--- NOTE | 2020-11-04 23:30 | PC.NURSE ---
Admit Note Arrived to unit via ER simona at this time. Pt alert and oriented X 4. Breathing even and non-labored on 2L NC. Pt denies pain/dizziness/chest pain. Arrived with Dopamine gtt infusing at 10mcg/kg/min. HR is 90's SR. Pt oriented to room and call light. Admission in progress at this time.
[2020-11-05] VITALS (31 sets, daily range): BP systolic 108–160; BP diastolic 68–108; PULSE 63–95; RESP 8–31; TEMP 36.7–37; O2SAT 91–97
[2020-11-05] MEDS: enoxaparin 40 mg/0.4 mL Syringe SUBCUT (00:26)
[2020-11-05 00:46] LABS: Add Urine Microscopic? NO
[2020-11-05 01:09] LABS: Bilirubin Urine Neg (Negative); Blood Urine Neg (Negative); Glucose Urine UA Norm (Normal); Ketones Urine Negative (Negative); Leukocyte Esterase Urine Negative (Negative); Nitrate Urine Negative (Negative); Protein Urine Neg (Negative); Urine Appearance Clear (CLEAR); Urine Color Yellow (Yellow); Urobilinogen Urine Norm (Negative); pH Urine 5 (5-7)
--- NOTE | 2020-11-05 01:54 | ECG_ITS ---
[facility] Test Date: 2020-11-05 Pat Name: John Mathur Department: Room: ICU10 Gender: Male Balloon Tester: geno HERNANDEZB: 1955 Requested By: Donnell Lagos Order Number: [id number] Teddy MD: KATERIN WOODS Measurements Intervals [place] Rate: 81 P: -79 MO: 135 QRS: 3 QRSD: 100 T: 26 QT: 397 QTc: 462 Interpretive Statements JUNCTIONAL RHYTHM INCOMPLETE RIGHT BUNDLE BRANCH BLOCK [90+ ms QRS DURATION, TERMINAL R IN V1/V2, 40+ ms S IN I/aVL/V4/V5/V6] MODERATE VOLTAGE CRITERIA FOR LVH, CONSIDER NORMAL VARIANT [MEETS CRITERIA IN ONE OF: R(aVL), S(V1), R(V5), R(V5/V6)+S(V1)] NONSPECIFIC ST & T-WAVE ABNORMALITY ABNORMAL RHYTHM ECG Compared to ECG 11/04/2020 21:06:51 Junctional rhythm now present Incomplete right bundle-branch block now present T-wave abnormality now present Sinus rhythm no longer present First degree AV block no longer present Intraventricular conduction delay no longer present Electronically Signed On 11-05-2020 17:44:56 PIN TICKET MACHINE OPERATOR by KATERIN WOODS [id number]
[2020-11-05 03:05] LABS: Basophils % 0.3 %; Eosinophils # 0.2 10^3/uL (0.0-0.8); Eosinophils % 1.4 %; Hematocrit 45.9 % (42.0-52.0); Hemoglobin 15.5 g/dL (11.7-16.6); Lymphocytes # 1.9 10^3/uL (0.8-4.8); Lymphocytes % 15.2 %; Mean Corpuscular HGB Conc 33.8 g/dL (30.0-36.0); Mean Corpuscular Hemoglobin 31.7 pg (28.0-34.0); Mean Corpuscular Volume 93.9 fL (80-94); Mean Platelet Volume 10.8 fL (7.4-10.4); Monocytes # 0.8 10^3/uL (0.2-0.9); Monocytes % 6.4 %; Neutrophils # 9.33 10^3/uL (1.8-7.7); Neutrophils % 76.1 %; Nucleated Red Blood Cells % 0 %; Platelet Count 212 10^3/cmm (130-400); Red Blood Count 4.89 10^6/uL (4.1-5.3); Red Cell Distribution Width 12.4 % (12.1-15.1); White Blood Count 12.3 10^3/uL (4.0-10.0)
[2020-11-05] MEDS: DOPamine drip 400 MG/250 ML PREMIX 27.4 MG IV (03:27)
[2020-11-05 03:46] LABS: Blood Urea Nitrogen 12 mg/dL (8-23); Calcium 9.3 mg/dL (8.5-10.5); Carbon Dioxide 23 mmol/L (22-29); Chloride 106 mmol/L (98-107); Glomerular Filtration Rate 96.7 mL/min (90-130); Glucose 131 mg/dL (65-115); Magnesium 1.6 mg/dL (1.7-2.3); Osmolality Calculated 292 mOsm/kg (285-295); Phosphorus 3.1 mg/dL (2.5-4.5); Sodium 140 mmol/L (136-145); Thyroid Stimulating Hormone 1.11 uIU/mL (0.27-4.20)
--- NOTE | 2020-11-05 09:07 | PM.PN ---
Subjective Subjective: Interval history: Patient reports feeling much better. Reports having off-and-on episodes of lightheadedness and dizziness but otherwise denies any chest pain or shortness of breath with any of those episodes. Reports that at home he noticed irregular rhythm although slow and on presentation was found to have atrial fibrillation with slow ventricular response. He was started on dopamine drip. His heart rate is in the 80s and he denies any symptoms. Denies previous history of GI bleed except a long time ago he had minimal hematochezia secondary to hemorrhoids. Denies melena. He had colonoscopy last year and had 1 polypectomy performed but otherwise no concerning lesions. Vitals/I&O/Wt Last Vital Signs Temp 98.3 F 11/05/20 08:00 Pulse 88 11/05/20 08:31 Resp 17 11/05/20 08:00 BP 152/94 11/05/20 08:00 Pulse Ox 93 11/05/20 08:31 11/04/20 11/05/20 11/05/20 22:59 06:59 14:59 Intake Total 0.915 / 0.915 275.718 / 276.633 Output Total 400 / 400 Balance 0.915 / 0.915 -124.282 / -123.367 Weight last 48 hrs Weight 102.285 kg Weight 97.522 kg Physical Exam Narrative: EXAM NARRATIVE: Heart is irregularly irregular. Lungs are clear. No lower extremity edema. Abdomen is soft and nontender with positive bowel sounds. Data : 11/05/20 02:00 11/05/20 02:00 A&P Assessment and plan (1) Bradycardia: Symptomatic Status: Acute (2) Atrial fibrillation: Status: Acute Qualifiers: Atrial fibrillation type: paroxysmal Qualified Code(s): I48.0 - Paroxysmal atrial fibrillation (3) Coronary artery disease: Status: Acute (4) H/O heart artery stent: Status: Acute Additional A&P Information PLAN: Dr. Godfrey to see patient in consultation later today. I think patient will benefit from amiodarone and I will discuss with Dr. Godfrey after his evaluation. Discussed with patient regarding risks and benefits of anticoagulation and he agreed to be anticoagulated. Will start Eliquis. We will continue aspirin for several more days since patient just had coronary intervention but I think upon discharge Eliquis and Plavix should be sufficient. Monitor CBC. [facility] Necessity Statement*: Patient with atrial fibrillation with slow ventricular response requires close inpatient monitoring and treatment Coding Level of Care Code Acute Operations/Dispatch for [facility] Fwd Diagnoses Bradycardia R00.1 Atrial fibrillation I48.0 Atrial fibrillation type: paroxysmal Coronary artery disease I25.10 H/O heart artery stent Z95.5
[2020-11-05] MEDS: clopidogrel 75 mg Tablet PO (09:38)
[2020-11-05] MEDS: aspirin 81 mg EC Tablet PO (09:39)
[2020-11-05] MEDS: pantoprazole DR 40 mg Tablet PO (09:39)
[2020-11-05] MEDS: atorvastatin 40 mg Tablet PO (09:41)
[2020-11-05] MEDS: allopurinol 300 mg Tablet PO (09:41)
--- NOTE | 2020-11-05 12:09 | P.CONIM_ITS ---
Providers/Reason For Consult Consulting Physican/Specialty*: Cardiology Reason for Consult*: Symptomatic heart block Attending Physician: Angus Reyes MD Primary Care Provider: Trish Meier History of Present Illness History of Present Illness John Mathur is a 65 year old male past medical history significant for hypertension hyperlipidemia for worsening of chest pain shortness of breath and for abnormal stress test underwent coronary angiogram noted to have proximal LAD and mid RCA severe calcified significant stentosis treated with drug-eluting stents few days ago. Patient was discharged home without any complication. Yesterday patient called me and told me that he was feeling dizzy spell which comes at once . I asked him to go to ER where he was noted to have multiple more than 4 to 5-second pauses along with brief episodes of atrial fibrillation please note, i was informed by ER physician Dr. Cunningham I do not have any documentation of the strips for it. Patient was started on dopamine metoprolol was discontinued and he was watched overnight. Since last night patient did not have any more episodes of heart blocks or sinus pauses. No significant atrial fibrillation episodes noted on the telemetry no significant sinus pause noted since his admission in the ICU. Patient denies any prior history of atrial fibrillation. Currently denies chest pain PND orthopnea. He has been ruled out for acute coronary syndrome. Review of Systems Narrative: Except as documented, all other systems reviewed and negative. Const: Denies: fever(s) Eyes: Denies: change in vision ENMT: Denies: enlarged tonsils, odynophagia, swelling of lips/tongue or sinus pain Card: Reports: irregular heart rhythm; Denies: chest pain, palpitations or edema Resp: Denies: dyspnea, productive cough, non-productive cough or wheezing GI: Denies: abdominal pain, nausea or vomiting : Denies: difficulty urinating or hematuria Musc: Denies: neck pain or back pain Skin/Breast: Denies: rash or erythema Neuro: Reports: dizziness; Denies: headache(s) or vertigo Psych: Denies: anxiety All/Imm: Denies: acute wheezing Meds/Allergies Home Medications and Allergies Home Medications Medication Instructions Recorded Confirmed Last Taken Type allopurinol 300 mg tablet 300 mg PO DAILY@09/27/20 11/05/20 10/30/20 22:30 History cetirizine 10 mg tablet 10 mg PO DAILY@12 09/27/20 11/05/20 10/30/20 22:30 History omeprazole 20 mg capsule,delayed 20 mg PO DAILY@09/27/20 11/05/20 10/30/20 22:30 History release nitroglycerin 0.4 mg sublingual 0.4 mg SUBLINGUAL Q5M PRN #25 tab 09/29/20 11/05/20 Unknown Rx tablet atorvastatin 40 mg PO DAILY #90 tab 11/01/20 11/05/20 10/30/20 22:30 Rx clopidogrel 75 mg PO DAILY #90 tab 11/01/20 11/05/20 10/31/20 07:15 Rx aspirin [Aspir-81] 81 mg PO DAILY@11/05/20 11/05/20 Unknown History chlorpheniramine-phenylephrine 1 tab PO PRN 11/05/20 11/05/20 11/05/20 History ergocalciferol (vitamin D2) See Rx Instructions .ROUTE .COMPLEX 11/05/20 11/05/20 Unknown History fluticasone propionate [Flonase] 1 - 2 spray INTRANASAL PRN 11/05/20 11/05/20 Unknown History metoprolol tartrate 12.5 mg PO BID 11/05/20 11/05/20 11/04/20 History montelukast [Singulair] 10 mg PO DAILY@11/05/20 11/05/20 Unknown History Allergies Allergy/AdvReac Type Severity Reaction Status Date / Time No Known Allergies Allergy Verified 11/05/20 10:06 Current Medications Current Medications Generic Name Dose Route Start Last Admin Trade Name Freq PRN Reason Stop Dose Admin Allopurinol 300 mg 11/05/20 09:00 11/05/20 09:41 Allopurinol 300 Mg Tablet PO 300 mg DAILY BOWEN Administration Aspirin 81 mg 11/05/20 09:00 11/05/20 09:39 Aspirin 81 Mg Ec Tablet PO 81 mg DAILY BOWEN Administration Atorvastatin Calcium 40 mg 11/05/20 09:00 11/05/20 09:41 Atorvastatin 40 Mg Tablet PO 40 mg DAILY BOWEN Administration Clopidogrel Bisulfate 75 mg 11/05/20 09:00 11/05/20 09:38 Clopidogrel 75 Mg Tablet PO 75 mg DAILY BOWEN Administration Dopamine HCl/Dextrose 400 mg in 250 mls @ 18.285 mls/hr 11/04/20 20:30 11/05/20 11:03 Intropin Drip IV 2 mcg/kg/min CONT BOWEN 7.3 mls/hr Titration Protocol 5 MCG/KG/MIN Isosorbide Mononitrate 30 mg 11/05/20 09:00 11/05/20 09:37 Isosorbide Mononitrate Er 30 Mg Tablet PO Not Given DAILY BOWEN Methocarbamol 750 mg 11/04/20 23:27 11/05/20 01:42 Methocarbamol 750 Mg Tablet PO Not Given Q8H BOWEN Pantoprazole Sodium 40 mg 11/05/20 09:00 11/05/20 09:[address] 40 Mg Tablet PO 40 mg DAILY BOWEN Administration PFSH Acute PFSH: Medical History Aortic valve regurgitation Benign paroxysmal positional vertigo Hyperlipidemia Pelvic pain in male Primary gout Vitamin D deficiency Surgical History History of hip surgery Hx of hernia repair Family History Mother Stroke Brother Diabetes Father CAD (coronary artery disease) Other Hyperlipidemia Hypertension Social History Smoking and tobacco status: never smoked Alcohol intake: current Alcohol intake frequency: holidays/special occasions only Marital status: Current occupational status: retired Dietary Habits: Current diet type/program: regular Caffeine: Yes Caffeine intake frequency: coffee Vitals/I&O/Wt Last Vital Signs Temp 98.3 F 11/05/20 08:00 Pulse 71 11/05/20 10:00 Resp 26 H 11/05/20 10:00 BP 141/83 11/05/20 10:00 Pulse Ox 96 11/05/20 10:00 11/04/20 11/05/20 11/05/20 22:59 06:59 14:59 Intake Total 0.915 / 0.915 275.718 / 276.633 42.618 / 42.618 Output Total 400 / 400 Balance 0.915 / 0.915 -124.282 / -123.367 42.618 / 42.618 Weight last 48 hrs Weight 225 lb 8 oz Weight 215 lb Physical Exam Narrative: EXAM NARRATIVE: GENERAL: Patient is alert, awake and oriented x3. NECK: No jugular vein distension. HEENT: No cyanosis. No icterus. No pallor. HEART: Regular S1 and S2. No murmur, rub or gallop. LUNGS: Clear to auscultate bilaterally. ABDOMEN: Soft, nontender and nondistended. Positive bowel sounds. No guarding, rebound or tenderness. CENTRAL NERVOUS SYSTEM: Grossly nonfocal. EXTREMITIES: Lower extremities without edema bilaterally. A&P Assessment and plan (1) Coronary artery disease: Stable. Continue to monitor continue current regimen discontinue beta- kartik for bradycardia and significant symptomatic pauses. Continue monitor on telemetry Status: Acute Qualifiers: Coronary Disease-Associated Artery/Lesion type: [place] artery [place] vs. transplanted heart: [place] heart Associated angina: without angina Qualified Code(s): I25.10 - Atherosclerotic heart disease of [place] coronary artery without angina pectoris (2) Heart block: No more pauses noted since last night I will discontinue dopamine we will monitor him for another 24 to 48 hours. He will be discharged on event monitor if I do not see any more significant pauses however despite of discontinuation of metoprolol if we see significant heart block which is symptomatic he may will be recommended for permanent pacemaker. I have detailed discussion with the patient and his at bedside they are in agreement. Patient told me that he has been noticing intermittent significant dizziness and presyncopal events for the past few months he always thought it is vertigo related. Status: Acute Consult Attestations Medical Necessity Statement: I am expecting his stay to cross more than 2 midnights Coding Level of Care Code New Pt Acute Parts Picker for Kai Lyn Patient Type New Medical Decision Making Moderate Complexity Diagnoses Coronary artery disease I25.10 Coronary Disease-Associated Artery/Lesion type: [place] artery [place] vs. transplanted heart: [place] heart Associated angina: without angina Heart block I45.9
[2020-11-05] MEDS: cetirizine 10 mg Tablet 5 MG PO (13:04)
[2020-11-05] MEDS: methocarbamol 750 mg Tablet PO ×2 (16:15→22:52)
[2020-11-05] MEDS: apixaban 5 mg Tablet PO (20:45)
--- NOTE | 2020-11-05 21:37 | PC.NURSE ---
Report called to ALBINO Easley. Room assignment 111-2. Pt transfered to u at this time via w/c.
[2020-11-05] MEDS: montelukast sodium 10 mg Tablet PO (22:48)
[2020-11-06] VITALS: BP 144/89; PULSE 75; RESP 16; TEMP 36.8; O2SAT 96
[2020-11-06 05:32] VITALS: BP 135/86; PULSE 84; RESP 19; TEMP 36.6; O2SAT 95
[2020-11-06 05:58] VITALS: PULSE 78
[2020-11-06 07:21] VITALS: BP 139/88; PULSE 82; RESP 14; TEMP 37.4; O2SAT 96
--- NOTE | 2020-11-06 07:27 | PC.NURSE ---
PT RESTING IN BED W/EYES CLOSED. NO S/S OF DISTRESS. WILL CONTINUE TO MONITOR.
[2020-11-06] MEDS: clopidogrel 75 mg Tablet PO (08:05)
[2020-11-06] MEDS: pantoprazole DR 40 mg Tablet PO (08:05)
[2020-11-06] MEDS: apixaban 5 mg Tablet PO (08:05)
[2020-11-06] MEDS: aspirin 81 mg EC Tablet PO (08:07)
--- NOTE | 2020-11-06 08:13 | PC.NURSE ---
MEDICATIONS PT REFUSED ALLOPURINOL, IMDUR, ATORVASTATIN AND ROBAXIN. HE NO LONGER TAKES ROBAXIN AND HE WILL TAKE HIS OTHER MEDICATIONS TONIGHT WHEN HE GETS HOME. NURSE TO CONTINUE TO MONITOR.
--- NOTE | 2020-11-06 09:28 | PM.DCS ---
Discharge Providers Date of Admission: 11/04/20 21:25 Date of Discharge: November 06, 2020 Attending Provider at Admission: Cade Moore Attending Provider at Discharge: Angus Reyes MD Primary Care Provider: Trish Meier Diagnoses at Discharge Discharge Diagnosis (1) Coronary artery disease: Status: Acute Qualifiers: Coronary Disease-Associated Artery/Lesion type: [place] artery [place] vs. transplanted heart: [place] heart Associated angina: without angina Qualified Code(s): I25.10 - Atherosclerotic heart disease of [place] coronary artery without angina pectoris (2) Heart block: Status: Acute (3) Atrial fibrillation: Status: Acute Permanent problem details: No evidence of atrial fibrillation at this point. Qualifiers: Atrial fibrillation type: paroxysmal Qualified Code(s): I48.0 - Paroxysmal atrial fibrillation (4) Bradycardia: Status: Acute (5) H/O heart artery stent: Status: Acute Reason for Visit Reason for Visit: DIZZY Hospital Course Hospital Course Patient presented with lightheadedness and dizziness. Initially it was thought that patient had atrial fibrillation. Dr. Godfrey reviewed EKGs and at this point there is no evidence of A. fib therefore Dr. Godfrey does not recommend to continue Eliquis. Patient's metoprolol was held and he was treated shortly with dopamine drip. His prolonged pauses and bradycardia resolved and patient this morning reports feeling much better and denies any lightheadedness or dizziness. Denies any chest pain or shortness of breath. Reports feeling strong enough to be dismissed home. Discussed with Dr. Godfrey and we will go ahead and continue his current medications except metoprolol. We will request event monitor on discharge with outpatient follow-up with Dr. Smith and primary care physician. Physical Exam Narrative: EXAM NARRATIVE: Lungs are clear and heart is regular. No lower extremity edema. Abdomen is soft and nontender with positive bowel sounds. Discharge Data Data Completed and Pending: Completed Studies During Hospitalization Category Date Time Status XR chest 1V brenda ble [id number] Stat Exams 11/04/20 19:54 Completed Vitals: Last Vital Signs Temp 99.4 F 11/06/20 07:21 Pulse 82 11/06/20 07:21 Resp 14 11/06/20 07:21 BP 139/88 11/06/20 07:21 Pulse Ox 96 11/06/20 07:21 Discharge Plan Discharge Patient Disposition: Home Condition: Stable Prescriptions: Continued allopurinol 300 mg tablet 300 mg PO DAILY@22 RF: 0 omeprazole 20 mg capsule,delayed release(DR/EC) 20 mg PO DAILY@09 RF: 0 cetirizine [Zyrtec] 10 mg tablet 10 mg PO DAILY@12 RF: 0 nitroglycerin 0.4 mg tablet, sublingual 0.4 mg sublingual Q5M PRN (Reason: chest pain) Qty: 25 RF: 3 atorvastatin 40 mg tablet 40 mg PO DAILY Qty: 90 RF: 4 clopidogrel 75 mg tablet 75 mg PO DAILY Qty: 90 RF: 4 Aspir-81 81 mg Tablet,Delayed Release (Dr/Ec) 81 mg PO DAILY@09 RF: 0 Singulair 10 mg Tablet 10 mg PO DAILY@12 RF: 0 ergocalciferol (vitamin D2) 1,250 mcg (50,000 unit) capsule See Rx Instructions .ROUTE .COMPLEX RF: 0 Flonase 50 mcg/actuation [place],Suspension 1 - 2 spray INTRANASAL PRN RF: 0 chlorpheniramine-phenylephrine 4-10 mg Tablet 1 tab PO PRN RF: 0 Discontinued metoprolol tartrate 25 mg tablet 12.5 mg PO BID RF: 0 Discharge Orders: Discharge Order (Routine); Ordered 11/06/20 Ordered By: Angus Reyes Other Ambulatory Orders: [place] cardiac event monitor (Routine) Timeframe: 1 Day Facility: [facility] - Location: Cardiac Diagnostic Laboratory Ordered By: Angus Reyes Referrals: Elizabeth Godfrey MD [Physician] - 2 weeks Trish Meier FNP-C [Primary Care Provider] - 4-7 days Discharge Diet: Advance as tolerated Discharge Activity: Increase activity as tolerated Activity Restrictions/Additional Instructions: Please call your doctor or present to emergency department if your condition worsens or you develop diarrhea, lightheadedness, fatigue or see blood in your stool or black stool. Please present to emergency department immediately if you develop any neurological signs or symptoms including weakness or numbness or change in your sensation or vision. Discharge Attestations Time Spent in Discharge Care*: greater than 30 min Quality Metrics Clinical Quality Measures During this hospital stay, did patient experience: None Coding Level of Care Code Acute Nurse Examiner for Kai Lyn Diagnoses Coronary artery disease I25.10 Coronary Disease-Associated Artery/Lesion type: [place] artery [place] vs. transplanted heart: [place] heart Associated angina: without angina Heart block I45.9 Atrial fibrillation I48.0 Atrial fibrillation type: paroxysmal Bradycardia R00.1 H/O heart artery stent Z95.5
--- NOTE | 2020-11-06 09:38 | PC.CHAP ---
Pastoral Care Encounter/Spiritual Assessment Type of Contact [] Declined regional coordinator visit [] Patient/Family/Request visit [] Outpatient visit [] Follow-up visit [] Physician referral [] Code/Alert [x] Routine visit [] Staff referral [] Actively dying [] Patient sleeping [] Family support [] [] Out of room [] Palliative care [] [] Receiving care in room [] Pre-surgical visit [] Trauma [] Long length of stay [] ICU visit [] Other: Relational/Emotional Strength [] Patient feels connected with others/family/visitors/staff [] Distress [] Loneliness/isolation [] Abandonment Spirituality of Patient [] Person of Poly [] Attends Anabaptist of their Poly [] Believes in Prayer [] Reads Bible or Caodaism materials [] There are Spiritual issues to be addressed [place] Assembler Interventions [x] Prayer [x] Active listening [x] Non-anxious presence [x] Spiritual/emotional support [] Crisis/trauma care [] Spiritual counseling [] Bereavement support [] Provided bereavement packet [] Provided Bible/devotional materials [] Provided toy/stuffed animal, coloring book to patient or family member [] Provided Communion [] Anointing/[place] [] Salvation [x] Completed spiritual assessment [] Other: Impact on Illness or Injury [] Angry [] Fearful [] Anxious [] Often cries [] Exhaustion [] Unable to work [] Unable to attend adventism [] Unable to walk/stand [] Unable to read [] Unable to drive [] Unable to eat/drink [] Unable to sleep [] Unable to be with family [] Patient intubated [] Other: Summary feeling much better, stronger.. ready to go home Time spent with patient 10 min
[2020-11-06 11:18] VITALS: BP 139/82; PULSE 73; RESP 21; TEMP 36.9; O2SAT 94
--- NOTE | 2020-11-06 11:46 | PM.PN ---
Subjective Subjective: Interval history: No more event since stopping of metoprolol with bradycardia or sinus pause. Medications: Reviewed: Yes Vitals/I&O/Wt Last Vital Signs Temp 98.5 F 11/06/20 11:18 Pulse 73 11/06/20 11:18 Resp 21 H 11/06/20 11:18 BP 139/82 11/06/20 11:18 Pulse Ox 94 11/06/20 11:18 11/05/20 11/06/20 11/06/20 22:59 06:59 14:59 Intake Total 480 / 882.618 200 / 1082.618 240 / 240 Balance 480 / 882.618 200 / 1082.618 240 / 240 Weight last 48 hrs Weight 225 lb 8 oz Weight 215 lb Physical Exam Narrative: EXAM NARRATIVE: GENERAL: Patient is alert, awake and oriented x3. NECK: No jugular vein distension. HEENT: No cyanosis. No icterus. No pallor. HEART: Regular S1 and S2. No murmur, rub or gallop. LUNGS: Clear to auscultate bilaterally. ABDOMEN: Soft, nontender and nondistended. Positive bowel sounds. No guarding, rebound or tenderness. CENTRAL NERVOUS SYSTEM: Grossly nonfocal. EXTREMITIES: Lower extremities without edema bilaterally. Pulses palpable in the lower extremities, both dorsalis pedis and posterior tibial. Data : 11/05/20 02:00 11/05/20 02:00 A&P Assessment and plan (1) Coronary artery disease: Stable from a cardiovascular perspective. Continue to follow with cardiology. Status: Acute Qualifiers: Coronary Disease-Associated Artery/Lesion type: [place] artery [place] vs. transplanted heart: [place] heart Associated angina: without angina Qualified Code(s): I25.10 - Atherosclerotic heart disease of [place] coronary artery without angina pectoris (2) Heart block: For the last 24 to 48 hours no more pauses are A. fib noted. Discontinue metoprolol. We will discharge patient on event monitor for 21 days. Patient has been advised in case of dizziness presyncope he should call us and come to the ER. Patient has been advised not to drive for at least 1 month or not to go near big machinery or on heights. At the moment he is in sinus rhythm with good variation of the heart. Status: Acute Attestations Medical Necessity Statement*: Patient can be discharged home on event monitor Coding Level of Care Code Acute Teacher Instrumental for Chg Fwd Diagnoses Coronary artery disease I25.10 Coronary Disease-Associated Artery/Lesion type: [place] artery [place] vs. transplanted heart: [place] heart Associated angina: without angina Heart block I45.9
[2020-11-06 12:18] VITALS: BP 139/82; PULSE 73; RESP 21; TEMP 36.9; O2SAT 94
--- NOTE | 2020-11-06 12:59 | PC.NURSE ---
DISCHARGE DISCHARGE INSTRUCTIONS AND NEW MEDICATION EDUCATION EXPLAINED TO PT AND SPOUSE. REMOVED BILATERAL ARM IV'S. CATH INTACT, NO BLEEDING OR PAIN AT REMOVAL SITES, PATIENT TOLERATED WELL. PT ALERT AND ORIENTED. PATIENT AND HIS BELONGINGS TAKEN TO [facility] SERVICES BY WHEELCHAIR WITH SPOUSE TO GET EVENT MONITOR PER DR. WOODS'S REQUEST.
== END 2020-11-06 12:45 | disposition home or self-care (01) | DRG 310 ==
LOC: ER 21:41 → ICU 21:51 → CSU 11-05 21:35
PROVIDERS: Admitting Provider Internal Medicine; Emergency Provider Emergency Medicine; PCP Nurse Practitioner Family; Visit Provider Internal Medicine
DX: R00.1 Bradycardia, unspecified (principal); I25.10 Atherosclerotic heart disease of native coronary artery without angina pectoris; Z95.5 Presence of coronary angioplasty implant and graft; I48.0 Paroxysmal atrial fibrillation; I35.1 Nonrheumatic aortic (valve) insufficiency; E78.5 Hyperlipidemia, unspecified; M10.9 Gout, unspecified; E55.9 Vitamin D deficiency, unspecified; I10 Essential (primary) hypertension; H81.10 Benign paroxysmal vertigo, unspecified ear; I45.9 Conduction disorder, unspecified; Z79.02 Long term (current) use of antithrombotics/antiplatelets
CPT/HCPCS: 36415; 71045; 80048; 80053; 81003; 82550; 83735; 83880; 84100; 84443; 84484; 85025; 85610; 85730; 93005; 96365; 96366; 96372; 99291; J1265; J1650; J7040